=== PATIENT | female | born 1950 | race Caucasian/White ===

== ENCOUNTER 2022-11-01 19:03 | Inpatient (IN) ==
[2022-11-01] MEDS ORDERED: NS 0.9% 1000 ml BAG 2,000 ML IV ONE (23:04)
[2022-11-01] MEDS ORDERED: Calcitonin (Salmon) INJ 200 UNITS/ML 2 ML VIAL (400 units) IM ONE ×2 (23:04→23:14)
[2022-11-02] MEDS ORDERED: Ondansetron 4 mg VIAL 2 MG/ML 2 ml VIAL IV PRN (00:08)
[2022-11-02] MEDS ORDERED: Senna TAB 8.6 mg TAB PO PRN (00:08)
[2022-11-02] MEDS: hydrALAZINE 20 mg/ml 1 ML Vial IV IV SLOW PU ONE ×2 (02:21→03:05)
[2022-11-02] MEDS ORDERED: hydrALAZINE 20 mg/ml 1 ML Vial IV IV SLOW PU PRN (02:51)
[2022-11-02] MEDS: Enoxaparin 40 MG/0.4 ML SYR SUBCUT SCH (05:05)
[2022-11-02 06:09] LABS: ABS Basophils 0.1 10^3/ul (0-0.2); ABS Eosinophils 0.1 10^3/ul (0-0.6); ABS Lymphocytes 1.7 10^3/ul (1.0-4.8); ABS Monocytes 0.6 10^3/ul (0-0.8); ABS Neutrophils 7.1 10^3/ul (1.5-7.7); Eosinophil % 0.9 %; Hematocrit 37 % (35-47); Hemoglobin 12.5 g/dL (12.0-16.0); Lymphocyte % 17.8 %; Mean Corpuscular HGB Conc 34 g/dL (31-36); Mean Corpuscular Hemoglobin 30 pg (27-31); Mean Corpuscular Volume 90 fL (80-97); Mean Platelet Volume 7.5 fL (7.4-10.4); Platelet Count 208 10^3/uL (150-450); Red Blood Count 4.12 10^6 /uL (3.70-4.87); Red Cell Distribution Width 14 % (10-15); White Blood Count 9.5 10^3/uL (3.5-10.8)
[2022-11-02 07:01] LABS: Calcium 9.6 mg/dL (8.6-10.3); Creatinine, Serum 0.77 mg/dL (0.51-0.95); eGFR CKD-EPI 82.4 (>60)
[2022-11-02 07:09] LABS: Potassium 2.7 mmol/L (3.5-5.0)
[2022-11-02 07:15] LABS: Vitamin D Total 25(OH) 78.2 ng/mL (20-50)
[2022-11-02] MEDS: Potassium Chloride LIQUID 20 MEQ/15 ML LIQUID PO ONE ×2 (08:05→08:08)
[2022-11-02 08:07] LABS: Magnesium 1.3 mg/dL (1.9-2.7)
[2022-11-02] MEDS ORDERED: Magnesium Sulf 4 GM/100 ML IV 4,000 MG/100 ML BAG IVPB ONE (08:19)
[2022-11-02] MEDS: PEGVISOMANT SUBCUT SCH (08:27)
[2022-11-02] MEDS ORDERED: Potassium Chlor 20 meq TAB.ER PO ONE ×2 (08:45→16:06)
[2022-11-02] MEDS ORDERED: Magnesium Sulfate IV 1GM/100ML 1 GM/100 ML BAG IV ONE (09:34)
[2022-11-02] MEDS: NS 0.9% 1000 ml BAG 1,000 ML IV SCH ×2 (11:57→23:47)
[2022-11-02 13:07] LABS: Calcium 11.2 mg/dL (8.6-10.3); Creatinine, Serum 0.96 mg/dL (0.51-0.95); Potassium 3.8 mmol/L (3.5-5.0); eGFR CKD-EPI 63.3 (>60)
[2022-11-02 16:24] LABS: Albumin 3.9 g/dL (3.2-5.2)
[2022-11-03] MEDS ORDERED: Senna/Docusate 8.6/50 mg (NF) TAB PO PRN (00:14)
[2022-11-03 04:22] LABS: ABS Eosinophils 0.1 10^3/ul (0-0.6); ABS Lymphocytes 2.1 10^3/ul (1.0-4.8); ABS Monocytes 0.5 10^3/ul (0-0.8); ABS Neutrophils 5.2 10^3/ul (1.5-7.7); Eosinophil % 1.2 %; Hematocrit 33 % (35-47); Hemoglobin 11.4 g/dL (12.0-16.0); Lymphocyte % 26.8 %; Mean Corpuscular HGB Conc 34 g/dL (31-36); Mean Corpuscular Hemoglobin 31 pg (27-31); Mean Corpuscular Volume 91 fL (80-97); Mean Platelet Volume 7.4 fL (7.4-10.4); Platelet Count 194 10^3/uL (150-450); Red Blood Count 3.67 10^6 /uL (3.70-4.87); Red Cell Distribution Width 14 % (10-15)
[2022-11-03 05:01] LABS: Calcium 9.6 mg/dL (8.6-10.3); Creatinine, Serum 0.84 mg/dL (0.51-0.95); Magnesium 1.7 mg/dL (1.9-2.7); Potassium 3.5 mmol/L (3.5-5.0); eGFR CKD-EPI 74.2 (>60)
[2022-11-03] MEDS: Enoxaparin 40 MG/0.4 ML SYR SUBCUT SCH (05:33)
[2022-11-03] MEDS ORDERED: Magnesium Sulfate IV 1GM/100ML 1 GM/100 ML BAG IV ONE (07:25)
[2022-11-03] MEDS: PEGVISOMANT SUBCUT SCH (09:45)
[2022-11-03 11:34] VITALS: BP 135/79
[2022-11-04] MEDS ORDERED: Senna TAB 8.6 mg TAB PO SCH (09:00)
== END 2022-11-03 13:45 | disposition home or self-care (01) | DRG 641 ==
LOC: ED 19:03 → EDHOLD 19:03 → MED 11-02 19:57
PROVIDERS: ADMIT Student in an Organized Health Care Education/Training Program; ATTEND Student in an Organized Health Care Education/Training Program